=== PATIENT | male | born 1950 | race Caucasian/White ===

== ENCOUNTER 2018-01-18 06:33 | Emergency (ER) | payer OTHER, MEDICARE ==
[~2018-01-18] VITALS: Ht 177.8 cm; Wt 104.3 kg
[2018-01-18 06:35] VITALS: BP 00/00
--- NOTE | 2018-01-18 06:56 | ED CRITICAL CARE ---
History of Present Illness General Chief Complaint: Cardiopulmonary Resuscitation Stated Complaint: CPR Source: family, EMS Exam Limitations: clinical condition Vital Signs & Intake/Output Vital Signs & Intake/Output Vital Signs Date Time Temp Pulse Resp B/P B/P Pulse O2 O2 Flow FiO2 Mean Ox Delivery Rate 01/18 0635 0 100% 01/18 0635 0 20 00/ 0 100% Triage Note: 67YO MALE TO RM 11 SP FOUND DOWN, APNEIC, PULSELESS BY FAMILY MEMBER. PT ORALLY INTUBATED, CPR IN PROGRESS, BEING BAGGED W/100%02 BY EMS. SEE CODE SHEET Triage Nurses Notes Reviewed? yes Onset: Abrupt Duration: minute(s): Timing: single episode today Injury Environment: home Severity: severe Pain Location: none Associated Symptoms: collapse HPI: 67 yo gentleman h/o of intermittent heroin abuse, had not seen a physician in recent years, presents in asystolic arrest. Per his , he was in his usual health, when he went into the bathroom. She heard him fall and shortly afterwards found him on the ground gasping. He then stopped breathing. She called 911 at approximately 5:55 and attempted bystander CPR. Medics arrived at approximately 6:00. Per the medics, he was initially in v-fib. He was shocked x 4, epi x 3, narcan x 0.8mg. He was then asystolic throughout. He was intubated in the field. Past History Travel History Traveled to [place] past 21 day No Medical History Any Pertinent Medical History? see below for history Psychiatric: heroin abuse intermittently Surgical History Surgical History: non-contributory Family History Hx Contributory? No Review of Systems Review of Systems Constitutional: Reports: no symptoms. Eyes: Reports: no symptoms. Ears, Nose, Throat, Mouth: Reports: no symptoms. Respiratory: Reports: no symptoms. Cardiovascular: Reports: no symptoms. Gastrointestinal/Abdominal: Reports: no symptoms. Genitourinary: Reports: no symptoms. Musculoskeletal: Reports: no symptoms. Skin: Reports: no symptoms. Neurological/Psychological: Reports: no symptoms. All Other Systems: Reviewed and Negative Comments ROS per his Physical Exam Physical Exam General Appearance: disheveled Head: atraumatic, normal appearance Eyes: Bilateral: other (no corneal reflexes). Ears, Nose, Throat, Mouth: moist mucous membrane Neck: normal inspection, supple, full range of motion Respiratory: normal breath sounds, chest non-tender, no respiratory distress, quiet respiration, lungs clear, decreased breath sounds, accessory muscle use Cardiovascular: 2+ pulses with compressions no pulse without compressions Gastrointestinal: soft Back: normal inspection Extremities: pallor, cool to touch Neurologic/Psych: pupils fixed and dilated, no corneal reflexes. no spontaneous movement. Core Measures ACS in differential dx? No CVA/TIA Diagnosis No Sepsis Present: No Sepsis Focused Exam Completed? No Progress Differential Diagnoses I considered the following diagnoses in my evaluation of the patient: cardiac dysrhythmia heroin abuse vs other. Plan of Care: Orders Procedure Date/time Status EKG 01/19 636 Active Initial ED EKG: none Rhythm Strip: asystole throughout ED stay Departure Departure Disposition: Condition: Stable Clinical Impression Primary Impression: Cardiac arrest Referrals: Patient Has No Primary Care Dr (PCP/Family) Departure Forms: General Discharge Information Comments discussed at length with . family at bedside. pt declines cobbler sole. Critical Care Note Critical Care Note Critical Care Time: 30-74 min
== END 2018-01-18 06:46 | disposition expired ==
LOC: ERH 06:33
DX: I46.9 Cardiac arrest, cause unspecified (principal)
CPT/HCPCS: 1387; 94799; 99291